=== PATIENT | female | born 1955 | race African-American/Black ===

== ENCOUNTER 2017-12-16 15:20 | Emergency (ER) | payer OTHER ==
[~2017-12-16] VITALS: Ht 157.5 cm; Wt 159.9 kg
[~2017-12-16 15:20] MED LIST: FLUTI44I INH; PRED10 PO; TENO300 PO; TOFA1TAB PO
[2017-12-16 15:57] VITALS: BP 119/59; PULSE 73; RESP 16; TEMP 98.2; O2SAT 99
--- NOTE | 2017-12-16 16:37 | PD ---
HPI Chief Complaint: Dizziness Time Seen by Provider: 16:37 Travel History International Travel<30 days: No Contact w/Intl Traveler<30days: No Traveled to known affect area: No History of Present Illness HPI 62-year-old female came to the emergency room with history of dizziness that has been there for past 3 weeks. She has been seeing her primary care who has put her on Antivert but patient says it's not working. She describes the dizziness as nurse followed by occasional passing out episode. She said the last time she had a syncopal episode was 3 days ago. Vital signs are stable. She does not appear to be in significant distress. Patient is morbidly obese and requires a walker for assistance to ambulate. Patient denies of any pain anywhere. She says that she was admitted one month ago for elevated liver enzymes. She is not a drinker. She is awake and answering questions appropriately. No history of chest pain or shortness of breath. PFSH Past Medical History Narrative Medical List of her past medical, surgical, social and family history is reviewed from the nursing note. Arthritis: Yes (RHEUMATOID) Asthma: Yes Cardiovascular Problems: Yes Diminished Hearing: No Gastrointestinal Disorders: No Hepatitis: Yes (HEP A) Hypertension: Yes (ONLY FROM PAIN) Neurologic: No Reproductive: No Respiratory: Yes Immunizations Current: Yes ?: Not Menopausal: Yes Past Surgical History Cholecystectomy: Yes Other Surgery: Yes (RIGHT BREAST BIOPSY-BENIGN) Social History Alcohol Use: No Tobacco Use: No Substance Use: No Allergies-Medications (Allergen,Severity, Reaction): Coded Allergies: Iodinated Contrast- Oral and IV Dye (Verified Allergy, Intermediate, n/v, 12/16/17) Sulfa (Sulfonamide Antibiotics) (Verified Allergy, Intermediate, EYE/ FACIAL SWELLING, 12/16/17) morphine (Verified Allergy, Intermediate, itchy skin, 12/16/17) Comments List of her allergies reviewed from the nursing note. Reported Meds & Prescriptions Reported Meds & Active Scripts Active Reported Viread (Tenofovir Disoproxil Fumarate) 300 Mg Tab 300 Mg PO DAILY Prednisone 10 Mg Tab 10 Mg PO DAILY Xeljanz Xr (Tofacitinib ER) 11 Mg Tab 11 Mg PO DAILY Flovent Hfa 10.6 GM Inh (Fluticasone Propionate) 44 Mcg/Act Inh 1 Puff INH BID Use daily at the same time. Narrative Medication List of her home medications reviewed from the nursing note. Review of Systems Except as stated in HPI: all other systems reviewed are Neg Neurologic: Positive: Dizziness Physical Exam Narrative GENERAL: Awake, alert, morbidly obese, no obvious distress SKIN: Focused skin assessment warm/dry. HEAD: Atraumatic. Normocephalic. EYES: Pupils equal and round. No scleral icterus. No injection or drainage. ENT: No nasal bleeding or discharge. Mucous membranes pink and moist. NECK: Trachea midline. No JVD. CARDIOVASCULAR: Regular rate and rhythm. No murmur appreciated. RESPIRATORY: No accessory muscle use. Clear to auscultation. Breath sounds equal bilaterally. GASTROINTESTINAL: Abdomen soft, non-tender, nondistended. Hepatic and splenic margins not palpable. MUSCULOSKELETAL: No obvious deformities. No clubbing. No cyanosis. No edema. NEUROLOGICAL: Awake and alert. No obvious cranial nerve deficits. Motor grossly within normal limits. Normal speech. PSYCHIATRIC: Appropriate mood and affect; insight and judgment normal. Data Data Last Documented VS Vital Signs Date Time Temp Pulse Resp B/P (MAP) Pulse Ox O2 Delivery O2 Flow Rate FiO2 12/16/17 18:38 67 16 118/58 (78) 100 12/16/17 17:04 Room Air 12/16/17 15:57 98.2 Orders Orders Electrocardiogram (12/16/17 17:00) Prothrombin Time / Inr (Pt) (12/16/17 17:00) Complete Blood Count With Diff (12/16/17 17:00) Comprehensive Metabolic Panel (12/16/17 17:00) Troponin I (12/16/17 17:00) Urinalysis - C+S If Indicated (12/16/17 17:00) Ct Brain W/O Iv Contrast(Rout) (12/16/17 17:00) Chest, Single Ap (12/16/17 17:00) Ecg Monitoring (12/16/17 17:00) Iv Access Insert/Monitor (12/16/17 17:00) Oximetry (12/16/17 17:00) Sodium Chloride 0.9% Flush (Ns Flush) (12/16/17 17:00) Orthostatic Vital Signs (12/16/17 17:00) Ed Discharge Order (12/16/17 18:19) Urine Culture (12/16/17 18:23) Labs Laboratory Tests Test 12/16/17 17:10 12/16/17 18:23 White Blood Count 7.7 TH/MM3 Red Blood Count 4.04 MIL/MM3 Hemoglobin 12.6 GM/DL Hematocrit 38.5 % Mean Corpuscular Volume 95.2 FL Mean Corpuscular Hemoglobin 31.3 PG Mean Corpuscular Hemoglobin Concent 32.8 % Red Cell Distribution Width 16.4 % Platelet Count 170 TH/MM3 Mean Platelet Volume 13.1 FL Neutrophils (%) (Auto) 65.2 % Lymphocytes (%) (Auto) 26.8 % Monocytes (%) (Auto) 2.8 % Eosinophils (%) (Auto) 0.9 % Basophils (%) (Auto) 4.3 % Neutrophils # (Auto) 5.0 TH/MM3 Lymphocytes # (Auto) 2.1 TH/MM3 Monocytes # (Auto) 0.2 TH/MM3 Eosinophils # (Auto) 0.1 TH/MM3 Basophils # (Auto) 0.3 TH/MM3 CBC Comment DIFF FINAL Differential Comment Prothrombin Time 13.3 SEC Prothromb Time International Ratio 1.3 RATIO Blood Urea Nitrogen 15 MG/DL Creatinine 1.00 MG/DL Random Glucose 102 MG/DL Total Protein 8.5 GM/DL Albumin 2.1 GM/DL Calcium Level 8.1 MG/DL Alkaline Phosphatase 165 U/L Aspartate Amino Transf (AST/SGOT) 196 U/L Alanine Aminotransferase (ALT/SGPT) 130 U/L Total Bilirubin 1.2 MG/DL Sodium Level 134 MEQ/L Potassium Level 5.2 MEQ/L Chloride Level 105 MEQ/L Carbon Dioxide Level 22.7 MEQ/L Anion Gap 6 MEQ/L Estimat Glomerular Filtration Rate 68 ML/MIN Troponin I LESS THAN 0.02 NG/ML Urine Color ORANGE Urine Turbidity HAZY Urine pH 6.5 Urine Specific [place] 1.032 Urine Protein TRACE mg/dL Urine Glucose (UA) NEG mg/dL Urine Ketones 15 mg/dL Urine Occult Blood NEG Urine Nitrite NEG Urine Bilirubin NEG Urine Leukocyte Esterase TRACE Urine RBC 0-3 /hpf Urine WBC 3-5 /hpf Urine Squamous Epithelial Cells > 8 /hpf Urine Bacteria MOD /hpf Microscopic Urinalysis Comment CULTURE INDICATED MDM Medical Decision Making Medical Screen Exam Complete: Yes Emergency Medical Condition: Yes Medical Record Reviewed: Yes Interpretation(s) Twelve-lead EKG was reviewed by me. Normal sinus rhythm, normal axis, nonspecific ST-T wave changes. Heart rate of 62 bpm. Differential Diagnosis Dehydration, electrolyte abnormality, intracranial bleed Narrative Course 6:12 PM test results of back and her liver function is elevated but it has come down significantly since her last LFTs. Head CT is negative. Her orthostatic vital signs were negative as well. At this point I do not have a good explanation of her dizziness but I'm comfortable sending her home. Procedures EKG Prior to Arrival: No Diagnosis Primary Impression: Dizziness Referrals: Primary Care Physician Additional Instructions: Return to the ER if condition worsens or any other new concerns. Otherwise follow-up with your primary care. Disposition: 01 DISCHARGE HOME Condition: Stable Dorene Morales MD Dec 16, 2017 16:37
[2017-12-16] MEDS ORDERED: SODIUM CHLORIDE 0.9% FLUSH 10 ML FLUSH IVF PRN (17:00)
[2017-12-16 17:04] VITALS: O2SAT 93
[2017-12-16 17:14] LABS: BASOPHIL # 0.3 TH/MM3 (0-0.2); BASOPHIL % 4.3 % (0.0-2.0); EOSINOPHIL # 0.1 TH/MM3 (0-0.4); EOSINOPHIL % 0.9 % (0.0-4.0); HEMATOCRIT 38.5 % (35.0-46.0); HEMOGLOBIN 12.6 GM/DL (11.6-15.3); LYMPH % 26.8 % (9.0-44.0); LYMPHOCYTE # 2.1 TH/MM3 (1.0-4.8); MEAN CELL VOLUME 95.2 FL (80.0-100.0); MEAN CORPUSCULAR HEMOGLOBIN 31.3 PG (27.0-34.0); MEAN CORPUSCULAR HGB CONC 32.8 % (32.0-36.0); MEAN PLATELET VOLUME 13.1 FL (7.0-11.0); MONO % 2.8 % (0.0-8.0); MONOCYTE # 0.2 TH/MM3 (0-0.9); NEUT % 65.2 % (16.0-70.0); PLATELET COUNT 170 TH/MM3 (150-450); RED BLOOD COUNT 4.04 MIL/MM3 (4.00-5.30); RED CELL DISTRIBUTION WIDTH 16.4 % (11.6-17.2); WHITE BLOOD COUNT 7.7 TH/MM3 (4.0-11.0)
[2017-12-16 17:23] LABS: CHLORIDE 105 MEQ/L (98-107); SODIUM (NA) 134 MEQ/L (136-145)
[2017-12-16 17:25] LABS: INTERNATIONAL NORMALIZED RATIO 1.3 RATIO; PROTHROMBIN TIME - PATIENT 13.3 SEC (9.8-11.6)
[2017-12-16 17:26] LABS: ALBUMIN 2.1 GM/DL (3.4-5.0); BICARBONATE 22.7 MEQ/L (21.0-32.0); BLOOD UREA NITROGEN 15 MG/DL (7-18); CALCIUM 8.1 MG/DL (8.5-10.1); GLUCOSE,RANDOM 102 MG/DL (74-106)
[2017-12-16 17:29] LABS: ALT (GPT) 130 U/L (10-53); AST (GOT) 196 U/L (15-37); GLOMERULAR FILTRATION RATE 68 ML/MIN (>89)
[2017-12-16 17:31] VITALS: BP_SYST 110; BP_SYST 135; BP_DIAS 62; BP_DIAS 67
[2017-12-16 17:31] LABS: TOTAL BILIRUBIN ADULT 1.2 MG/DL (0.2-1.0); TOTAL PROTEIN 8.5 GM/DL (6.4-8.2)
[2017-12-16 17:32] LABS: ALKALINE PHOSPHATASE 165 U/L (45-117)
[2017-12-16 17:34] LABS: TROPONIN I LESS THAN 0.02 NG/ML (0.02-0.05)
--- NOTE | 2017-12-16 18:02 | RADRPT ---
EXAM DATE/TIME: 12/16/2017 17:41 [facility] COMPARISON: No previous studies available for comparison. INDICATIONS : Dizziness and weakness for three weeks. RADIATION DOSE: 62.76 CTDIvol (mGy) MEDICAL HISTORY : Hypertension. SURGICAL HISTORY : Cholecystectomy. ENCOUNTER: Initial ACUITY: 3 weeks PAIN SCALE: 0/10 LOCATION: cranial TECHNIQUE: Multiple contiguous axial images were obtained of the head. Using automated exposure control and adj ustment of the mA and/or kV according to patient size, radiation dose was kept as low as reasonably a chievable to obtain optimal diagnostic quality images. DICOM format image data is available electro nically for review and comparison. FINDINGS: CEREBRUM: There is mild generalized atrophy. Ventricles are normal in size. There is mild periventricular white matter low attenuation. No evidence of midline shift, mass lesion, hemorrhage or acute infarction. No extra-axial fluid collections are seen. POSTERIOR FOSSA: The cerebellum and brainstem are intact. The 4th ventricle is midline. The cerebellopontine angle i s unremarkable. EXTRACRANIAL: The visualized portion of the orbits is intact. SKULL: The calvaria is intact. No evidence of skull fracture. CONCLUSION: 1. No acute intracranial abnormality is identified. 2. Chronic findings include mild generalized atrophy and mild chronic periventricular white matter lo w attenuation. Raymundo Savage MD on December 16, 2017 at 17:58 Board Certified Radiologist. This report was verified electronically.
--- NOTE | 2017-12-16 18:17 | RADRPT ---
EXAM DATE/TIME: 12/16/2017 17:55 [facility] COMPARISON: CHEST SINGLE AP, November 01, 2017, 19:08. INDICATIONS : Dizziness and weakness- Shortness of breath. MEDICAL HISTORY : Hypertension. SURGICAL HISTORY : Hysterectomy. ENCOUNTER: Initial ACUITY: 3 weeks PAIN SCORE: 0/10 LOCATION: Bilateral chest FINDINGS: A single view of the chest demonstrates the lungs to be symmetrically aerated without evidence of mas s, infiltrate or effusion. The cardiomediastinal contours are unremarkable. Osseous structures are intact. CONCLUSION: 1. No acute cardiopulmonary disease. Esa Mcmillan MD on December 16, 2017 at 18:15 Board Certified Radiologist. This report was verified electronically.
[2017-12-16 18:26] LABS: BLOOD, URINE NEG (NEG); GLUCOSE,URINE NEG (NEG); KETONE, URINE 15 mg/dL (NEG); NITRITE,URINE NEG (NEG); PH, URINE 6.5 (5.0-8.5); URINE LEUKOCYTE ESTERASE TRACE (NEG)
[2017-12-16 18:30] LABS: BILIRUBIN, URINE NEG (NEG)
[2017-12-16 18:31] LABS: BACTERIA, URINE MOD /hpf; RBC, URINE 0-3 /hpf (0-3); SQUAMOUS EPITHELIAL CELL URINE > 8 /hpf (0-5); URINE COLOR ORANGE (YELLW/STRAW)
[2017-12-16 18:38] VITALS: BP 118/58
--- NOTE | 2017-12-17 15:19 | EKG ---
Date Performed: 12/16/2017 Time Performed: 17:19:04 PTAGE: 62 years EKG: Sinus rhythm Since previous tracing, no significant change noted NORMAL ECG PREVIOUS TRACING : 11/01/2017 19.06 DOCTOR: Hemanth Wilson Interpretating Date/Time 12/17/2017 15:17:29
== END 2017-12-16 18:57 | disposition home or self-care (01) ==
LOC: PHED 15:20
DX: R42 Dizziness and giddiness (principal); B96.89 Other specified bacterial agents as the cause of diseases classified elsewhere; E66.01 Morbid (severe) obesity due to excess calories; R74.8 Abnormal levels of other serum enzymes; Z88.5 Allergy status to narcotic agent; Z88.2 Allergy status to sulfonamides
CPT/HCPCS: 70450; 71045; 80053; 81001; 84484; 85025; 85610; 87086; 93005; 99285